=== PATIENT | female | born 1980 | race Caucasian/White ===

== ENCOUNTER 2017-06-05 17:26 | Emergency (ER) | payer BC, OTHER ==
[2017-06-05 17:37] VITALS: BP 129/69
[2017-06-05] MEDS ORDERED: Sodium Chloride 0.9% 10 ML Syringe FLUSH PRN (18:00)
--- NOTE | 2017-06-05 18:00 | EDM.PDOC ---
<Jesica Jara - Last Filed: 06/05/17 17:55> ED HPI GENERAL MEDICAL PROBLEM - General Chief Complaint: Lower Extremity Injury/Pain Stated Complaint: LEG PAIN POSSIBLE BLOOD CLOT Time Seen by Provider: 06/05/17 17:40 Source of Information: Reports: Patient History Limitations: Reports: No Limitations - History of Present Illness INITIAL COMMENTS - FREE TEXT/NARRATIVE: Patient is a 36 YO female who presents today with left thigh pain and worry about a possible blood clot. She states the pain started 2 weeks ago. It came on while she was laying on the cough. She described it as achy. The pain comes and goes and nothing seems to trigger it. When the pain is present, nothing makes it better or worse. She has tried Aleve with no relief. She states that she does not have pain in the left thigh currently. She reports right sided chest pain that started a couple days ago. She states something it is made worse with inspiration. This pain also comes as goes and is described as sharp in nature. She denies shortness or breath. She does have a history of a PE in 2014. She underwent extensive testing for bleeding disorders and nothing was found. She is not currently on a blood thinner. She is no on control. She does smoke 1/2 pack per day. She denies alcohol or recreational drug use. She states that 2 of her brothers from a [place] and were otherwise in good health. Patient denies fever, cough, abdominal pain and states she has not been sick in the past 2 weeks. Left Leg Pain Score (Numeric/FACES): 6 - Related Data Allergies Allergy/AdvReac Type Severity Reaction Status Date / Time amoxicillin trihydrate AdvReac Seizure Verified 06/05/17 17:37 [From Augmentin] potassium clavulanate AdvReac Seizure Verified 06/05/17 17:37 [From Augmentin] Home Meds: Home Meds Lansoprazole [Prevacid] 15 mg PO DAILY 10/31/14 [History] Past Medical History Respiratory History: Reports: PE Other OB/BYN History: 14 years ago Social & Family History - Tobacco Use Smoking Status *Q: Current Every Day Smoker Years of Tobacco use: 10 Packs/Tins Daily: 0.5 Used Tobacco, but Quit: No Month/Year Tobacco Last Used: september Second Hand Smoke Exposure: No - Caffeine Use Caffeine Use: Reports: None - Alcohol Use Days Per Week of Alcohol Use: 1 Number of Drinks Per Day: 1 Total Drinks Per Week: 1 - Recreational Drug Use Recreational Drug Use: No Review of Systems - Review of Systems Review Of Systems: See Below Constitutional: Reports: No Symptoms Respiratory: Reports: Pleuritic Chest Pain (comes and goes) Cardiovascular: Reports: Chest Pain (right sided, comes and goes) GI/Abdominal: Reports: No Symptoms Musculoskeletal: Reports: Leg Pain (anterior left thigh) Skin: Reports: No Symptoms Neurological: Reports: No Symptoms Psychiatric: Reports: No Symptoms ED EXAM, GENERAL - Physical Exam Exam: See Below Exam Limited By: No Limitations General Appearance: Alert, WD/WN, No Apparent Distress Respiratory/Chest: No Respiratory Distress, Lungs Clear, Normal Breath Sounds, Chest Non-Tender, Other (non-splinting respirations) Cardiovascular: Normal Peripheral Pulses, Regular Rate, Rhythm, No Murmur Peripheral Pulses: 4+: Posterior Tibial (L), Posterior Tibial (R), Dorsalis Pedis (L), Dorsalis Pedis (R) GI/Abdominal: Normal Bowel Sounds, Soft, Non-Tender, No Distention Extremities: Normal Inspection, Non-Tender, Other (no swelling, increased warmth or reddness to the left thigh. No pain to palpation, and patient does not have pain currently. ) Neurological: Alert, Oriented, CN II-XII Intact, Normal Cognition, No Motor/ Sensory Deficits Psychiatric: Normal Affect, Normal Mood Skin Exam: Warm, Dry, Intact, Normal Color, No Rash Course - Vital Signs Last Recorded V/S: Last Vital Signs Temp 36.7 C 06/05/17 17:32 Pulse 71 06/05/17 17:32 Resp 16 06/05/17 17:32 BP 129/69 06/05/17 17:32 Pulse Ox 98 06/05/17 17:32 - Orders/Labs/Meds Orders: Active Orders 24 hr Category Date Time Status Cardiac Monitoring [RC] . DIRECTED Care 06/05/17 18:02 Active EKG Documentation Completion [RC] ASDIRECTED Care 06/05/17 17:53 Active Peripheral IV Care [RC] . DIRECTED Care 06/05/17 18:00 Active Chest 2V [CR] Stat Exams 06/05/17 18:06 Taken Peripheral IV Insertion Adult [OM.PC] Stat Oth 06/05/17 18:00 Ordered EKG 12 Lead [EK] Stat Ther 06/05/17 17:52 Ordered Labs: Laboratory Tests 06/05/17 06/05/17 06/05/17 Range/Units 18:06 18:06 18:06 WBC 5.05 (3.98-10.04) K/mm3 RBC 4.27 (3.98-5.22) M/mm3 Hgb 12.9 (11.2-15.7) gm/L Hct 37.4 (34.1-44.9) % MCV 87.6 (79.4-94.8) fl MCH 30.2 (25.6-32.2) pg MCHC 34.5 (32.2-35.5) g/dl RDW Std Deviation 40.2 (36.4-46.3) fL Plt Count 223 (182-369) K/mm3 MPV 9.2 L (9.4-12.3) fl Neut % (Auto) 56.8 (34.0-71.1) % Lymph % (Auto) 32.1 (19.3-51.7) % Rains % (Auto) 7.7 (4.7-12.5) % Eos % (Auto) 2.8 (0.7-5.8) Baso % (Auto) 0.4 (0.1-1.2) % Neut # (Auto) 2.87 (1.56-6.13) K/mm3 Lymph # (Auto) 1.62 (1.18-3.74) K/mm3 Rains # (Auto) 0.39 H (0.24-0.36) K/mm3 Eos # (Auto) 0.14 (0.04-0.36) K/mm3 Baso # (Auto) 0.02 (0.01-0.08) K/mm3 D-Dimer, Quantitative 0.27 (0.19-0.50) mg/L Sodium 142 (136-145) mEq/L Potassium 3.5 (3.5-5.1) mEq/L Chloride 108 H (98-107) mEq/L Carbon Dioxide 24 (21-32) mEq/L Anion Gap 13.5 (5-15) BUN 13 (7-18) mg/dL Creatinine 0.8 (0.55-1.02) mg/dL Est Cr Clr Drug Dosing 76.15 mL/min Estimated GFR (MDRD) > 60 (>60) mL/min BUN/Creatinine Ratio 16.3 (14-18) Glucose 127 H (74-106) mg/dL Calcium 8.3 L (8.5-10.1) mg/dL Total Bilirubin 0.6 (0.2-1.0) mg/dL AST 11 L (15-37) U/L ALT 21 (14-59) U/L Alkaline Phosphatase 32 L (46-116) U/L Troponin I (0.00-0.056) ng/mL C-Reactive Protein (<1.0) mg/dL Total Protein 6.5 (6.4-8.2) g/dl Albumin 3.9 (3.4-5.0) g/dl Globulin 2.6 gm/dL Albumin/Globulin Ratio 1.5 (1-2) HCG, Qual (NEGATIVE) 06/05/17 06/05/17 Range/Units 18:06 18:06 WBC (3.98-10.04) K/mm3 RBC (3.98-5.22) M/mm3 Hgb (11.2-15.7) gm/L Hct (34.1-44.9) % MCV (79.4-94.8) fl MCH (25.6-32.2) pg MCHC (32.2-35.5) g/dl RDW Std Deviation (36.4-46.3) fL Plt Count (182-369) K/mm3 MPV (9.4-12.3) fl Neut % (Auto) (34.0-71.1) % Lymph % (Auto) (19.3-51.7) % Rains % (Auto) (4.7-12.5) % Eos % (Auto) (0.7-5.8) Baso % (Auto) (0.1-1.2) % Neut # (Auto) (1.56-6.13) K/mm3 Lymph # (Auto) (1.18-3.74) K/mm3 Rains # (Auto) (0.24-0.36) K/mm3 Eos # (Auto) (0.04-0.36) K/mm3 Baso # (Auto) (0.01-0.08) K/mm3 D-Dimer, Quantitative (0.19-0.50) mg/L Sodium (136-145) mEq/L Potassium (3.5-5.1) mEq/L Chloride (98-107) mEq/L Carbon Dioxide (21-32) mEq/L Anion Gap (5-15) BUN (7-18) mg/dL Creatinine (0.55-1.02) mg/dL Est Cr Clr Drug Dosing mL/min Estimated GFR (MDRD) (>60) mL/min BUN/Creatinine Ratio (14-18) Glucose (74-106) mg/dL Calcium (8.5-10.1) mg/dL Total Bilirubin (0.2-1.0) mg/dL AST (15-37) U/L ALT (14-59) U/L Alkaline Phosphatase (46-116) U/L Troponin I < 0.017 (0.00-0.056) ng/mL C-Reactive Protein < 0.2 (<1.0) mg/dL Total Protein (6.4-8.2) g/dl Albumin (3.4-5.0) g/dl Globulin gm/dL Albumin/Globulin Ratio (1-2) HCG, Qual Negative (NEGATIVE) Meds: Medications Discontinued Medications Generic Name Dose Route Start Last Admin Trade Name Freq PRN Reason Stop Dose Admin Sodium Chloride 10 ml 06/05/17 18:00 Saline Flush FLUSH ASDIRECTED PRN Keep Vein Open Departure - Departure Disposition: Home, Self-Care 01 Clinical Impression: Leg pain, anterior Qualifiers: Laterality: left Qualified Code(s): M79.605 - Pain in left leg - Discharge Information Instructions: Musculoskeletal Pain Referrals: Crystal Bradley MD [Primary Care Provider] - Forms: ED Department Discharge Additional Instructions: Follow-up with your primary care provider within 2 weeks for recheck of your symptoms. Recommend discussing a stress test and possible an echocardiogram due to your family history. Recommend using Tylenol, Motrin or Aleve for the soreness. Also recommend using heat and stretching. Please return to the ER if your symptoms change or worsen. - My Orders Last 24 Hours: My Active Orders 06/05/17 18:02 Cardiac Monitoring [RC] . DIRECTED 04/30/18 18:06 Chest 2V [CR] Stat - Assessment/Plan Last 24 Hours: My Active Orders 06/05/17 18:02 Cardiac Monitoring [RC] . DIRECTED 06/05/17 18:06 Chest 2V [CR] Stat <Nellie Chung - Last Filed: 06/05/17 19:28> ED HPI GENERAL MEDICAL PROBLEM - History of Present Illness INITIAL COMMENTS - FREE TEXT/NARRATIVE: I have seen the patient and agree wit the HPI as documented by RUFINO Osman. Patient denies any lightheadedness, dizziness or syncope. Review of Systems - Review of Systems Neurological: Denies: Dizziness, Syncope EKG INTERPRETATION EKG Date: 06/05/17 Time: 18:10 Rhythm: NSR Rate (Beats/Min): 68 [place]: Normal P-Wave: Present QRS: Normal ST-T: Normal QT: Normal EKG Interpretation Comments: NSR at [address] segment changes. T wave inversion V2-V4. Poor R wave progression. Reviewed by myself and Dr. Cordoba. Course - Radiology Interpretation Free Text/Narrative:: (Chest: 2 views of the chest were obtained. Comparison: Prior chest x-ray of 11/03/14. Heart size at the upper limits of normal. Upper mediastinum is normal. Lungs are clear. Bony structures are unremarkable. Impression: 1. Heart size at the upper limits of normal. This appears most likely to be due to slight left ventricular prominence and please correlate if patient has chronic hypertension. 2. Nothing acute is otherwise seen on 2 view chest x-ray. - Re-Assessments/Exams Free Text/Narrative Re-Assessment/Exam: 06/05/17 19:05 I have seen the patient and agree with the HPI, ROS and PE as documented by RUFINO Osman. Reviewed the labs, EKG and imaging with the patient. 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 Does not appear that she had an echocardiogram done when she ws hospitalized in 2014. As for his the leg discomfort; etiology is somewhat unclear. Likely muscular. she is on her feet constantly for work. Encouraged her utilize heat, Tylenol, Motrin and stretching. We will discharge her home at this time. Discharge instructions as documented. Departure - Departure Time of Disposition: 19:06 Condition: Fair
--- NOTE | 2017-06-06 06:51 | CR ---
Chest: Two views of the chest were obtained. Comparison: Prior chest x-ray of 11/03/14. Heart size at the upper limits of normal. Upper mediastinum is normal. Lungs are clear. Bony structures are unremarkable. Impression: 1. Heart size at the upper limits of normal. This appears most likely to be due to slight left ventricular prominence and please correlate if patient has chronic hypertension. 2. Nothing acute is otherwise seen on two-view chest x-ray. Diagnostic code #3
== END 2017-06-05 19:13 | disposition home or self-care (01) ==
LOC: JD.ED 17:26
DX: M79.605 Pain in left leg (principal); F17.210 Nicotine dependence, cigarettes, uncomplicated; Z88.1 Allergy status to other antibiotic agents; Z79.899 Other long term (current) drug therapy
CPT/HCPCS: 36415; 71046; 71046-26; 80053; 84484; 84703; 85025; 85379; 86140; 93005; 99283; 99284-25

== ENCOUNTER 2022-02-28 05:57 | Emergency (ER) | payer BC ==
[2022-02-28 06:17] VITALS: BP 133/64; PULSE 70
[2022-02-28] MEDS ORDERED: Nitroglycerin 2% Oint 1 GM UD Packet TOP ONE (06:31)
[2022-02-28] MEDS ORDERED: Morphine 2 MG/ML SYRINGE IVPUSH ONE (06:32)
[2022-02-28 06:42] LABS: ESTIMATED GFR 82 mL/min (>60)
== END 2022-02-28 11:33 | disposition home or self-care (01) ==
LOC: JD.ED 05:57
DX: R07.89 Other chest pain (principal); Z88.0 Allergy status to penicillin; Z88.8 Allergy status to other drugs, medicaments and biological substances; Z79.899 Other long term (current) drug therapy
CPT/HCPCS: 36415; 71045; 80053; 83880; 84484; 85025; 85379; 85610; 85730; 93005; 96374; 99285; A9270; J2270

== ENCOUNTER 2022-10-30 11:21 | Emergency (ER) | payer BC ==
[2022-10-30 11:42] VITALS: BP 148/92; PULSE 92
[2022-10-30] MEDS ORDERED: Sodium Chloride 0.9% 10 ML Syringe FLUSH PRN (12:10)
[2022-10-30] MEDS ORDERED: cefTRIAXone 2 GM in Sodium Chloride 0.9% 100 ML IV ONE (12:11)
[2022-10-30 12:38] LABS: BASOPHILS PERCENT AUTO 0.4 % (0.0-1.0); EOSINOPHILS ABSOLUTE AUTO 0.1 K/mm3 (0.0-0.4); EOSINOPHILS PERCENT AUTO 1.8 % (0.0-6.0); HEMATOCRIT 44.8 % (37.0-47.0); HEMOGLOBIN 15.9 gm/dl (12.0-16.0); IMMATURE GRAN ABSOLUTE AUTO 0.01 K/mm3 (0.00-0.05); IMMATURE GRAN PERCENT AUTO 0.2 % (0.0-0.4); LYMPHOCYTES ABSOLUTE AUTO 1.2 K/mm3 (1.0-4.8); MEAN CORPUSCULAR HEMOGLOBIN 31.6 pg (28.0-32.0); MEAN CORPUSCULAR HGB CONC 35.5 g/dl (32.0-36.0); MEAN CORPUSCULAR VOLUME 89.1 fl (83.0-99.0); MEAN PLATELET VOLUME 8.7 fl (9.4-12.3); MONOCYTES ABSOLUTE AUTO 0.2 K/mm3 (0.0-0.8); MONOCYTES PERCENT AUTO 5.4 % (0.0-8.0); NEUTROPHILS ABSOLUTE AUTO 2.9 K/mm3 (1.8-7.7); NEUTROPHILS PERCENT AUTO 65.2 % (41.0-71.0); PLATELET COUNT,PLT 233 K/mm3 (150-400); RED BLOOD CELL COUNT 5.03 M/mm3 (4.10-5.30); WHITE BLOOD CELL COUNT,WBC 4.45 K/mm3 (3.9-11.3)
[2022-10-30 12:55] LABS: A/G RATIO 1.3 (1-2); ALANINE AMINOTRANSFERASE,ALT 18 U/L (14-59); ALBUMIN 4.5 g/dl (3.4-5.0); ALKALINE PHOSPHATASE 40 U/L (46-116); ASPARTATE AMNIOTRANSFERASE,AST 10 U/L (15-37); BILIRUBIN TOTAL 0.8 mg/dL (0.2-1.0); BLOOD UREA NITROGEN,BUN 11 mg/dL (7-18); BUN/CREATININE RATIO 13.8 (14-18); C-REACTIVE PROTEIN <0.2 mg/dL (<1.0); CALCIUM 9.3 mg/dL (8.5-10.1); CARBON DIOXIDE,CO2 25 mEq/L (21-32); CHLORIDE,CL 101 mEq/L (98-107); CREATININE 0.8 mg/dL (0.55-1.02); EST CRCL DRUG DOSING (CG) 71.71 mL/min; ESTIMATED GFR 94 mL/min (>60); GLUCOSE RANDOM 158 mg/dL (70-99); PROTEIN TOTAL,TP 8.1 g/dl (6.4-8.2); SODIUM,NA 136 mEq/L (136-145)
== END 2022-10-30 14:10 | disposition home or self-care (01) ==
LOC: JD.ED 11:21
DX: L03.032 Cellulitis of left toe (principal); F17.210 Nicotine dependence, cigarettes, uncomplicated; E11.9 Type 2 diabetes mellitus without complications; Z88.1 Allergy status to other antibiotic agents
CPT/HCPCS: 36415; 73660; 80053; 85025; 85652; 86140; 87040; 96365; 99283; J0696; J3490; 99284